=== PATIENT | female | born 1995 | race Caucasian/White ===

== ENCOUNTER → 2017-05-10 | Outpatient (CLI) | payer OTHER ==
[2017-05-10 10:57] LABS: GLUCOSE FASTING 75 mg/dL (70-110)
[2017-05-10 11:22] LABS: BASOPHIL % 0.5 % (0-2); PLATELET COUNT 287 x10^3mcL (130-400); RED CELL DISTRIBUTION WIDTH 14.2 % (11.5-14.5)
== END | disposition home or self-care (01) ==
LOC: LB 10:20
DX: Z34.90 Encounter for supervision of normal pregnancy, unspecified, unspecified trimester (principal)